=== PATIENT | male | born 1960 | race Caucasian/White ===

== ENCOUNTER 2016-09-03 05:50 | Day surgery (SDC) | payer MEDICARE ==
[2016-08-28 12:13] LABS: HEMOGLOBIN 13.2 g/dL (13.6-17.8)
[2016-08-28 12:16] LABS: HEMATOCRIT 37.7 % (40.0-51.0)
[2016-08-28 12:30] LABS: CALCIUM, SERUM 9.1 MG/DL (8.5-10.4); CHLORIDE, SERUM 106 MMOL/L (96-112); CO2 (CARBON DIOXIDE) 25 MMOL/L (24-34); CREATININE 1.05 MG/DL (0.70-1.30); GFR AFRICAN AMERICAN 92 ML/MIN (>=60); GFR NON AFRICAN AMERICAN 80 ML/MIN (>=60); GLUCOSE, SERUM 102 MG/DL (60-99); POTASSIUM, SERUM 4.1 MMOL/L (3.5-5.3); SODIUM, SERUM 137 MMOL/L (135-148)
[2016-08-28 12:32] LABS: BUN (BLOOD UREA NITROGEN) 20 MG/DL (6-23)
--- NOTE | ~2016-09-03 | OP ---
Record Of Operation [facility] [address] [place]. [address] NAME: JENNIFER ZUÑIGA : 60 STATUS : [facility]#: [id number] AGE: 56 ADM/REG DATE : 09/03/16 MR#: [id number] REPORT SERV DATE: 09/07/16 DICTATED BY: KEYSHAWN GEORGE DATE: 09/07/16 REPORT STATUS : Draft TRANSCRIBED BY: MODL DATE: 09/07/16 DATE OF PROCEDURE: 09/03/2016 PREOPERATIVE DIAGNOSES: 1. Respiratory papilloma of the laryngeal epiglottis. 2. 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 POSTOPERATIVE DIAGNOSES: 1. Respiratory papilloma of the laryngeal epiglottis. 2. 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 PROCEDURE: Microdirect laryngoscopy with excisions of airway lesions as described. ANESTHESIA: General endotracheal anesthesia was utilized. ESTIMATED BLOOD LOSS: 3 mL. COMPLICATIONS: None. FLUIDS: 1000 mL of IV fluids given. Intraoperative photographs taken. INDICATIONS FOR PROCEDURE: A 56-year-old gentleman with a history of recurrent respiratory papillomas on areas described. He returns to clinic in followup and has return of lesions. He has indications for procedure. Described the risks and benefits of the procedure including recurrence. He voiced understanding and signed the consent. The consent was placed on chart at time of operation. DESCRIPTION OF PROCEDURE: The patient is wheeled to the OR suite and placed on the OR table in supine position. He was intubated, placed under general endotracheal anesthesia using a 7.0 regular endotracheal tube. The table was turned 90 degrees. He was prepped and draped in a standard fashion for direct laryngoscopy. A Dedo-Ossoff would be used to visualize his larynx and visualize his piriform sinus and palpated all areas concerning submucosal mass, no lesions of the vallecula. He had a lesion on the laryngeal surface of this epiglottis in the left and we would use the laryngeal school bus dispatcher blade once I suspended him using Lewy suspension arm and a 0-degree endoscope and 30-degree endoscope to visualize lesion. I actually would end up using the [place] blade of anesthesiologist laryngoscope to suspend for best visualization. I will remove the lesion using the laryngeal school bus dispatcher blade and the microdebrider until it was completely denuded it base. I had sprayed the larynx with beginning of the case. There was minimal bleeding here. I then took the patient out of suspension. He had to have maxillary tooth guard in place. I will remove the scopes from his pharynx, so placed a McIvor mouth gag in from the tonsillectomy set to visualize the nasopharynx. I pulled the uvula back and there was posterior palatal lesion within the nasopharynx on the right side of the soft palate, seizing once again the laryngeal school bus dispatcher blade. I would remove this down to its base as well without difficulty. This tissue was sent for path. I had good hemostasis at the end of the case. Estimated blood loss was 3 mL. There was no further lesion seen in Record Of Operation [address] [address] NAME: JENNIFER ZUÑIGA : 60 STATUS : [facility]#: [id number] AGE: 56 ADM/REG DATE : 09/03/16 MR#: [id number] REPORT SERV DATE: 09/07/16 DICTATED BY: KEYSHAWN GEORGE DATE: 09/07/16 REPORT STATUS : Draft TRANSCRIBED BY: WILLIAM DATE: 09/07/16 the upper aerodigestive tract. He would be taken out of suspension. The mouth gag was removed. He was turned 90 degrees, returned to care of anesthesiologist. Tooth guard was removed as well. He was subsequently awoken, extubated, and stably transferred to the recovery area. NANCY/WILLIAM Keyshawn George M.D. / [id number] CC: Ramu Orr N.P.
[~2016-09-03 05:50] MED LIST: AMB10 PO; BENTYL20 PO; LOPID6 PO; LORCET PLUS1 TAB PO; LORTAB10 PO; LOTE40 PO; MULTIPLE VIT PO; NEUR600 PO; NORCO1 TAB PO; NORV5 PO; PR25 PO; PREV30 PO; PROTONIX PO; SOMATAB PO; TRAZODONE150 MG PO; ZANAFLEX 4 MG TA4 MG PO
== END 2016-09-03 14:18 | disposition home or self-care (01) ==
LOC: SDC 05:50
PROVIDERS: Otolaryngology
PROC: 0CBM8ZZ Excision of Pharynx, Via Natural or Artificial Opening Endoscopic (ICD-10-PCS; 2016-09-03)
PROC: 0CBR8ZZ Excision of Epiglottis, Via Natural or Artificial Opening Endoscopic (ICD-10-PCS; principal; 2016-09-03 07:15)
DX: D14.1 Benign neoplasm of larynx (principal); I10 Essential (primary) hypertension; K21.9 Gastro-esophageal reflux disease without esophagitis; G43.909 Migraine, unspecified, not intractable, without status migrainosus; F41.9 Anxiety disorder, unspecified; E78.5 Hyperlipidemia, unspecified; Z88.1 Allergy status to other antibiotic agents; Z88.2 Allergy status to sulfonamides; Z79.891 Long term (current) use of opiate analgesic; Z79.899 Other long term (current) drug therapy; Z82.49 Family history of ischemic heart disease and other diseases of the circulatory system; Z82.5 Family history of asthma and other chronic lower respiratory diseases; Z83.3 Family history of diabetes mellitus; Z87.891 Personal history of nicotine dependence; Z98.1 Arthrodesis status; Z98.890 Other specified postprocedural states
CPT/HCPCS: 80048; 85014; 85018; 88305; 93005; A9270-GY; J0690; J2175; J2250; J3010